=== PATIENT | male | born 1935 | race Caucasian/White ===

== ENCOUNTER 2021-01-23 14:24 | Inpatient (IN) | payer OTHER, MEDICARE ==
[2021-01-23 14:52] LABS: #Eosinphils 0.1 thou/uL (0.0-0.7); #Lymphocytes 0.9 thou/uL (1.20-3.40); %Basophils 0.2 % (0.0-1.0); %Eosinophils 0.7 % (0.0-10.0); %Lymphocytes 8.4 % (21.0-51.0); %Monocytes 9.2 % (0.0-10.0); %Neutrophils 81.5 % (42.0-75.0); Hemoglobin 13.9 g/dL (14.0-18.0); Mean Corpuscular HGB CONC 33.5 g/dL (32.0-36.0); Mean Corpuscular Hemoglobin 33.4 pg (27.0-31.0); Mean Corpuscular Volume 99.6 fL (78.0-98.0); Mean Platelet Volume 7.8 fL (7.4-10.4); Platelet Count 280 thou/uL (130-400); RBC Distribution Width 12.4 % (11.5-14.5); Red Blood Cell (RBC) Count 4.17 mill/uL (4.70-6.10)
[2021-01-23] MEDS ORDERED: Fentanyl 100 MCG/2 ML VIAL ONE ×2 (14:54→15:54)
[2021-01-23] MEDS ORDERED: Ketorolac Tromethamine 30 MG/ML VIAL ONE (14:54)
[2021-01-23 15:21] LABS: ALT (SGPT) 15 U/L (8-55); AST (SGOT) 25 U/L (5-34); Albumin 3.8 g/dL (3.4-4.8); Alkaline Phosphatase 55 U/L (40-110); Anion Gap 14 mmol/L (10-20); BUN (Urea Nitrogen) 21 mg/dL (8.4-25.7); Bilirubin, Total 0.4 mg/dL (0.2-1.2); Calc. Creatinine Clearance 0 mL/min (70-130); Carbon Dioxide 23 mmol/L (23-31); Chloride 105 mmol/L (98-107); Globulin 3.3 g/dL (2.4-3.5); Glucose 119 mg/dL (83-110); Potassium 4.5 mmol/L (3.5-5.1); Protein, Total 7.1 g/dL (5.8-8.1); Sodium 137 mmol/L (136-145)
[2021-01-23] MEDS ORDERED: Dextrose 50% Abboject 50 ML SYRINGE SLOW IVP PRN (16:59)
[2021-01-23] MEDS ORDERED: hydrALAZINE 20 MG/ML VIAL SLOW IVP PRN (16:59)
[2021-01-23] MEDS ORDERED: Ondansetron ODT 4 MG TAB PO PRN (16:59)
[2021-01-23] MEDS ORDERED: Dextrose 5% in Water 1,000 ML IV PRN (16:59)
[2021-01-23] MEDS ORDERED: Ondansetron PF 4 MG/2 ML Vial IVP PRN (16:59)
[2021-01-23] MEDS ORDERED: Sodium Chloride 0.9% 1,000 ML IV SCH (17:00)
[2021-01-23] MEDS ORDERED: Cyclobenzaprine 10 MG TAB ONE ×2 (17:00)
[2021-01-23] MEDS ORDERED: Acetaminophen/Codeine 30-300mg Tablet PO PRN (17:05)
[2021-01-23 17:26] LABS: Bilirubin Negative (Negative); Blood, Urine 3+ (Negative); Clarity Turbid (Clear); Glucose, Urine (Dipstick) Normal (Negative); Ketone, Urine Negative (Negative); Leukocyte 75 Leu/uL (Negative); Nitrite Negative (Negative); Protein, Urine (Dipstick) 70 mg/dL (Neg-Trace); RBC/HPF Greater than 50 HPF (0-3); Specific Gravity, Urine 1.018 (1.002-1.036); Squamous Epithelial 0-3 HPF (0-3); Urobilinogen Normal mg/dL (Less than 2); pH, Urine 5.5 (5.0-9.0)
[2021-01-23 17:28] LABS: Bacteria/HPF 1+ HPF (None Seen)
[2021-01-23 17:42] LABS: Magnesium 2.1 mg/dL (1.6-2.6)
[2021-01-23 17:48] LABS: SARS-CoV-2 NAA Rapid Test Not Detected (NotDetected)
[2021-01-23] MEDS ORDERED: Acetaminophen/Codeine 30-300mg Tablet ONE ×3 (19:04→22:43)
[2021-01-23] MEDS: Acetaminophen/Codeine 30-300mg Tablet PO SCH (19:05)
[2021-01-23] MEDS: Famotidine 20 MG TAB PO SCH (21:43)
[2021-01-23] MEDS ORDERED: Famotidine 20 MG TAB ONE (22:42)
[2021-01-24] MEDS ORDERED: Acetaminophen/Codeine 30-300mg Tablet ONE ×2 (01:06→06:34)
[2021-01-24] MEDS: Acetaminophen/Codeine 30-300mg Tablet PO SCH ×4 (01:13→20:11)
[2021-01-24 05:53] LABS: #Basophils 0.1 thou/uL (0.0-0.2); #Eosinphils 0.3 thou/uL (0.0-0.7); #Monocytes 1.2 thou/uL (0.11-0.59); #Neutrophils 5.9 thou/uL (1.40-6.50); %Basophils 0.6 % (0.0-1.0); %Lymphocytes 12.3 % (21.0-51.0); %Neutrophils 70.1 % (42.0-75.0); Hemoglobin 12.7 g/dL (14.0-18.0); Mean Corpuscular HGB CONC 33.8 g/dL (32.0-36.0); Mean Corpuscular Hemoglobin 33.6 pg (27.0-31.0); Mean Corpuscular Volume 99.2 fL (78.0-98.0); Mean Platelet Volume 7.5 fL (7.4-10.4); Platelet Count 225 thou/uL (130-400); RBC Distribution Width 12.3 % (11.5-14.5); Red Blood Cell (RBC) Count 3.78 mill/uL (4.70-6.10); White Blood Cell (WBC) Count 8.4 thou/uL (4.8-10.8)
[2021-01-24 06:18] LABS: Anion Gap 11 mmol/L (10-20); BUN (Urea Nitrogen) 27 mg/dL (8.4-25.7); Calc. Creatinine Clearance 0 mL/min (70-130); Calcium 8.6 mg/dL (7.8-10.44); Carbon Dioxide 23 mmol/L (23-31); Chloride 108 mmol/L (98-107); Glucose 101 mg/dL (83-110); Sodium 138 mmol/L (136-145)
[2021-01-24] MEDS ORDERED: Famotidine/PF 20 mg/2ml Vial ONE (06:33)
[2021-01-24] MEDS ORDERED: Famotidine 20 MG TAB ONE ×2 (06:34→09:08)
[2021-01-24] MEDS: Famotidine 20 MG TAB PO SCH ×2 (06:39→09:24)
[2021-01-24] MEDS ORDERED: Fentanyl 100 MCG/2 ML VIAL SLOW IVP PRN (10:01)
[2021-01-24] MEDS ORDERED: Acetaminophen 325 MG TAB PO SCH (10:15)
[2021-01-24 15:18] VITALS: BMI 33.2
[2021-01-24] MEDS: Acetaminophen 325 MG TAB PO PRN (15:39)
[2021-01-24] MEDS: Sulfameth/Trimethoprim DS 800-160mg TAB PO SCH (20:11)
[2021-01-25] MEDS: Acetaminophen/Codeine 30-300mg Tablet PO SCH ×4 (02:11→21:17)
[2021-01-25 06:41] LABS: Hemoglobin 12.4 g/dL (14.0-18.0); Mean Corpuscular HGB CONC 33.8 g/dL (32.0-36.0); Mean Corpuscular Hemoglobin 33.4 pg (27.0-31.0); Mean Corpuscular Volume 98.8 fL (78.0-98.0); Mean Platelet Volume 8.5 fL (7.4-10.4); Platelet Count 187 thou/uL (130-400); RBC Distribution Width 12.5 % (11.5-14.5); Red Blood Cell (RBC) Count 3.72 mill/uL (4.70-6.10); White Blood Cell (WBC) Count 8.3 thou/uL (4.8-10.8)
[2021-01-25 07:01] LABS: Anion Gap 10 mmol/L (10-20); BUN (Urea Nitrogen) 24 mg/dL (8.4-25.7); Calc. Creatinine Clearance 58 mL/min (70-130); Calcium 8.6 mg/dL (7.8-10.44); Carbon Dioxide 24 mmol/L (23-31); Chloride 106 mmol/L (98-107); Glucose 93 mg/dL (83-110); Phosphorus 3.3 mg/dL (2.3-4.7); Potassium 4.1 mmol/L (3.5-5.1); Sodium 136 mmol/L (136-145)
[2021-01-25] MEDS: Sulfameth/Trimethoprim DS 800-160mg TAB PO SCH (08:51)
[2021-01-25] MEDS: Famotidine 20 MG TAB PO SCH (08:51)
[2021-01-25] MEDS: Acetaminophen 325 MG TAB PO PRN (08:58)
[2021-01-25 09:04] LABS: Band 4 % (5-11); Eosinophils 3 % (0-10); Lymphocytes 16 % (21-51); MDiff Complete? YES; Monocytes 18 % (0-10); Neutrophil 58 % (42-75); RBC Morphology Normal; Reactive Lymphocytes 1 % (0-10)
[2021-01-26] MEDS ORDERED: Sodium Chloride 0.9% 1,000 ML IV SCH (01:00)
[2021-01-26] MEDS: Acetaminophen/Codeine 30-300mg Tablet PO SCH ×4 (01:08→20:15)
[2021-01-26] MEDS: Acetaminophen 325 MG TAB PO PRN ×2 (05:24→17:43)
[2021-01-26] MEDS ORDERED: CEFAZOLIN 2 GM, Admixture Fee 1 EACH in Sodium Chloride 0.9% 100 ML IVPB SCH (06:00)
[2021-01-26] MEDS: Famotidine 20 MG TAB PO SCH (08:18)
[2021-01-26] MEDS ORDERED: ceFAZolin 2 GM/DEX 5% 100 ML BAG ONE (08:47)
[2021-01-26] MEDS ORDERED: Dexamethasone 4 mg/ml Vial ONE (10:00)
[2021-01-26] MEDS ORDERED: Fentanyl 100 MCG/2 ML VIAL ONE ×3 (10:00→13:51)
[2021-01-26] MEDS ORDERED: Lidocaine 1% PF 5 ML VIAL ONE (11:47)
[2021-01-26] MEDS ORDERED: Ondansetron PF 4 MG/2 ML Vial ONE (11:47)
[2021-01-26] MEDS ORDERED: Rocuronium Bromide 10 MG/ML (10ML VIAL) ONE (11:47)
[2021-01-26] MEDS ORDERED: PROPOFOL 200 MG/20 ML VIAL ONE (11:47)
[2021-01-26] MEDS ORDERED: Dexamethasone 20 MG/5 ML VIAL ONE ×2 (11:47)
[2021-01-26] MEDS ORDERED: Glycopyrrolate 0.2 MG/ML 5 ML SYRINGE ONE (11:47)
[2021-01-26] MEDS ORDERED: Bupivacaine HCl 0.5%/Epinephrine 1:200,000/PF 30 ml Vial ONE (11:47)
[2021-01-26] MEDS ORDERED: Phenylephrine 10 MG/ML VIAL ONE (11:47)
[2021-01-26] MEDS ORDERED: ePHEDrine 50 MG/ML VIAL ONE (11:47)
[2021-01-26] MEDS ORDERED: Promethazine HCl 25 MG/ML VIAL IM PRN (13:41)
[2021-01-26] MEDS ORDERED: Promethazine HCl 25 MG/ML VIAL IVPB PRN (13:41)
[2021-01-26] MEDS ORDERED: Ondansetron HCl/PF 4 MG/2 ML Vial IVP PRN (13:41)
[2021-01-26] MEDS: ceFAZolin Sodium/D5W 2 GM in Premix Bag 1 BAG IVPB SCH (20:16)
[2021-01-27] MEDS: Acetaminophen/Codeine 30-300mg Tablet PO SCH ×4 (02:57→20:10)
[2021-01-27] MEDS: ceFAZolin Sodium/D5W 2 GM in Premix Bag 1 BAG IVPB SCH ×2 (02:59→12:27)
[2021-01-27 05:58] LABS: #Lymphocytes 0.7 thou/uL (1.20-3.40); #Neutrophils 8.3 thou/uL (1.40-6.50); %Basophils 0.1 % (0.0-1.0); %Eosinophils 0.1 % (0.0-10.0); %Lymphocytes 7.3 % (21.0-51.0); %Monocytes 9.6 % (0.0-10.0); %Neutrophils 82.9 % (42.0-75.0); Hemoglobin 10.9 g/dL (14.0-18.0); Mean Corpuscular Hemoglobin 33.2 pg (27.0-31.0); Mean Corpuscular Volume 97.7 fL (78.0-98.0); Mean Platelet Volume 7.8 fL (7.4-10.4); Platelet Count 216 thou/uL (130-400); RBC Distribution Width 12.1 % (11.5-14.5); Red Blood Cell (RBC) Count 3.28 mill/uL (4.70-6.10)
[2021-01-27 06:56] LABS: Anion Gap 12 mmol/L (10-20); BUN (Urea Nitrogen) 22 mg/dL (8.4-25.7); Calc. Creatinine Clearance 68 mL/min (70-130); Calcium 8.3 mg/dL (7.8-10.44); Carbon Dioxide 22 mmol/L (23-31); Chloride 105 mmol/L (98-107); Glucose 131 mg/dL (83-110); Magnesium 1.9 mg/dL (1.6-2.6); Phosphorus 3.4 mg/dL (2.3-4.7); Potassium 4.3 mmol/L (3.5-5.1); Sodium 135 mmol/L (136-145)
[2021-01-27] MEDS: Famotidine 20 MG TAB PO SCH (08:42)
[2021-01-27] MEDS ORDERED: Magnesium 2 GM/50 ML 2 GM in Premix Bag 1 BAG IVPB SCH (09:00)
[2021-01-27] MEDS: Atorvastatin Calcium 20 MG TAB PO SCH (20:10)
[2021-01-28] MEDS: Acetaminophen/Codeine 30-300mg Tablet PO SCH ×4 (03:02→20:17)
[2021-01-28 05:46] LABS: Hemoglobin 10.5 g/dL (14.0-18.0); Mean Corpuscular HGB CONC 33.4 g/dL (32.0-36.0); Mean Corpuscular Hemoglobin 33.2 pg (27.0-31.0); Mean Corpuscular Volume 99.5 fL (78.0-98.0); Mean Platelet Volume 7.9 fL (7.4-10.4); Platelet Count 203 thou/uL (130-400); RBC Distribution Width 12.2 % (11.5-14.5); Red Blood Cell (RBC) Count 3.15 mill/uL (4.70-6.10); White Blood Cell (WBC) Count 7.7 thou/uL (4.8-10.8)
[2021-01-28 05:59] LABS: Anion Gap 10 mmol/L (10-20); BUN (Urea Nitrogen) 26 mg/dL (8.4-25.7); Calc. Creatinine Clearance 84 mL/min (70-130); Carbon Dioxide 25 mmol/L (23-31); Chloride 102 mmol/L (98-107); Glucose 92 mg/dL (83-110); Magnesium 2.1 mg/dL (1.6-2.6); Phosphorus 3.1 mg/dL (2.3-4.7); Potassium 4.1 mmol/L (3.5-5.1); Sodium 133 mmol/L (136-145)
[2021-01-28 06:17] LABS: Band 6 % (5-11); Lymphocytes 12 % (21-51); MDiff Complete? YES; Monocytes 9 % (0-10); Neutrophil 73 % (42-75)
[2021-01-28] MEDS: Famotidine 20 MG TAB PO SCH (08:45)
[2021-01-28] MEDS: Furosemide 80 MG TAB PO SCH (08:45)
[2021-01-28] MEDS: Multivit, Therapeutic 1 TAB PO SCH (08:45)
[2021-01-28] MEDS: Potassium Chloride 10 MEQ TAB PO SCH (08:45)
[2021-01-28] MEDS ORDERED: Senokot S 8.6-50 MG TAB PO SCH (11:00)
[2021-01-28] MEDS ORDERED: Polyethylene Glycol 3350 17 GM Packet PO SCH (11:00)
[2021-01-28] MEDS: Senokot S 8.6-50 MG TAB PO SCH (20:18)
[2021-01-28] MEDS: Atorvastatin Calcium 20 MG TAB PO SCH (20:18)
[2021-01-29] MEDS: Acetaminophen/Codeine 30-300mg Tablet PO SCH ×4 (02:18→20:48)
[2021-01-29 05:42] LABS: Hemoglobin 10.8 g/dL (14.0-18.0); Mean Corpuscular HGB CONC 32.9 g/dL (32.0-36.0); Mean Corpuscular Hemoglobin 32.5 pg (27.0-31.0); Mean Corpuscular Volume 98.6 fL (78.0-98.0); Mean Platelet Volume 7.8 fL (7.4-10.4); Platelet Count 212 thou/uL (130-400); RBC Distribution Width 12.1 % (11.5-14.5); Red Blood Cell (RBC) Count 3.33 mill/uL (4.70-6.10); White Blood Cell (WBC) Count 7.6 thou/uL (4.8-10.8)
[2021-01-29 06:01] LABS: Anion Gap 13 mmol/L (10-20); BUN (Urea Nitrogen) 31 mg/dL (8.4-25.7); Calc. Creatinine Clearance 74 mL/min (70-130); Calcium 8.2 mg/dL (7.8-10.44); Carbon Dioxide 27 mmol/L (23-31); Chloride 101 mmol/L (98-107); Glucose 98 mg/dL (83-110); Magnesium 1.8 mg/dL (1.6-2.6); Phosphorus 3.6 mg/dL (2.3-4.7); Potassium 3.6 mmol/L (3.5-5.1); Sodium 137 mmol/L (136-145)
[2021-01-29 06:39] LABS: Band 12 % (5-11); Lymphocytes 18 % (21-51); MDiff Complete? YES; Monocytes 8 % (0-10); Neutrophil 62 % (42-75)
[2021-01-29] MEDS ORDERED: Magnesium 2 GM/50 ML 2 GM in Premix Bag 1 BAG IVPB SCH (08:00)
[2021-01-29] MEDS ORDERED: Magnesium Sulfate 2 GM in Sodium Chloride 0.9% 100 ML IVPB SCH (09:00)
[2021-01-29] MEDS ORDERED: Potassium Chloride 40 MEQ in Premix Bag 1 BAG IVPB SCH (09:00)
[2021-01-29] MEDS: Multivit, Therapeutic 1 TAB PO SCH (09:01)
[2021-01-29] MEDS: Furosemide 80 MG TAB PO SCH (09:01)
[2021-01-29] MEDS: Potassium Chloride 10 MEQ TAB PO SCH (09:01)
[2021-01-29] MEDS: Senokot S 8.6-50 MG TAB PO SCH ×2 (09:01→20:48)
[2021-01-29] MEDS: Famotidine 20 MG TAB PO SCH (09:02)
[2021-01-29] MEDS: Polyethylene Glycol 3350 17 GM Packet PO SCH (09:06)
[2021-01-29] MEDS ORDERED: Bisacodyl 10 MG SUPP PR SCH (11:15)
[2021-01-29] MEDS: Atorvastatin Calcium 20 MG TAB PO SCH (20:48)
[2021-01-30] MEDS: Acetaminophen/Codeine 30-300mg Tablet PO SCH ×3 (02:50→14:26)
[2021-01-30] MEDS: Multivit, Therapeutic 1 TAB PO SCH (08:55)
[2021-01-30] MEDS: Potassium Chloride 10 MEQ TAB PO SCH (08:55)
[2021-01-30] MEDS: Furosemide 80 MG TAB PO SCH (08:55)
[2021-01-30] MEDS: Polyethylene Glycol 3350 17 GM Packet PO SCH (08:56)
[2021-01-30] MEDS: Senokot S 8.6-50 MG TAB PO SCH (08:56)
[2021-01-30] MEDS ORDERED: Bisacodyl 10 MG SUPP PR PRN (11:03)
[2021-01-30 11:48] VITALS: BP 132/60; TEMP 98.4
== END 2021-01-30 15:03 | DRG 521 ==
LOC: ERS 14:24 → ERHOLD 16:59 → SURG A 01-24 14:26
PROVIDERS: ADMIT Emergency Medicine; ATTEND Emergency Medicine
PROC: 0SRR0J9 Replacement of Right Hip Joint, Femoral Surface with Synthetic Substitute, Cemented, Open Approach (ICD-10-PCS; principal; 2021-01-26)
DX: S72.001A Fracture of unspecified part of neck of right femur, initial encounter for closed fracture (principal); I62.03 Nontraumatic chronic subdural hemorrhage; N17.9 Acute kidney failure, unspecified; N39.0 Urinary tract infection, site not specified; M19.90 Unspecified osteoarthritis, unspecified site; W19.XXXA Unspecified fall, initial encounter; I25.10 Atherosclerotic heart disease of native coronary artery without angina pectoris; N18.9 Chronic kidney disease, unspecified; Z20.822 Contact with and (suspected) exposure to COVID-19; I25.2 Old myocardial infarction; Z95.1 Presence of aortocoronary bypass graft; Z88.8 Allergy status to other drugs, medicaments and biological substances; Z87.891 Personal history of nicotine dependence; Y92.000 Kitchen of unspecified non-institutional (private) residence as the place of occurrence of the external cause
CPT/HCPCS: 36415; 70450; 71045; 72170; 80048; 80053; 81003; 81015; 83735; 84100; 84145; 85025; 87040; 87086; 96374; 96376; C1713; C1776; G0390; J1100; J1885; J1956; J2370; J2405; J2704; J3010; J3475; J3480; J3490; J7050; S0028; U0002

== ENCOUNTER 2022-01-31 11:45 | Outpatient (CLI) | payer OTHER | END 2022-01-31 11:46 | disposition home or self-care (01) | LOC: CT 11:45 | PROVIDERS: ATTEND Nurse Practitioner Family | DX: I62.03 Nontraumatic chronic subdural hemorrhage (principal); G96.08 Other cranial cerebrospinal fluid leak | CPT/HCPCS: 70450 ==

== ENCOUNTER 2022-02-26 18:03 | Emergency (ER) | payer OTHER, MEDICARE ==
[2022-02-26 20:02] LABS: Bilirubin Negative (Negative); Blood, Urine 1+ (Negative); Clarity Extra Turbid (Clear); Glucose, Urine (Dipstick) Normal (Negative); Ketone, Urine Negative (Negative); Leukocyte 500 Leu/uL (Negative); Nitrite 2+ (Negative); Protein, Urine (Dipstick) 10 mg/dL (Neg-Trace); Specific Gravity, Urine 1.012 (1.002-1.036); Squamous Epithelial None Seen HPF (0-3); Triple Phosphate Crystal 4+ HPF (None Seen); Urobilinogen Normal mg/dL (Less than 2); WBC/HPF 21-50 HPF (0-3); pH, Urine 8.5 (5.0-9.0)
[2022-02-26 20:04] LABS: Bacteria/HPF 1+ HPF (None Seen); Unclassified Crystals 4+ HPF (None Seen)
[2022-02-26 20:50] LABS: #Eosinphils 0.2 thou/uL (0.0-0.7); #Lymphocytes 2.5 thou/uL (1.20-3.40); #Monocytes 1.2 thou/uL (0.11-0.59); %Basophils 0.1 % (0.0-1.0); %Eosinophils 1.4 % (0.0-10.0); %Lymphocytes 21.1 % (21.0-51.0); %Monocytes 9.9 % (0.0-10.0); %Neutrophils 67.5 % (42.0-75.0); Mean Corpuscular Hemoglobin 31.7 pg (27.0-31.0); Mean Platelet Volume 8.5 fL (7.4-10.4); Platelet Count 276 10x3/uL (130-400); RBC Distribution Width 12.1 % (11.5-14.5); Red Blood Cell (RBC) Count 4.09 mill/uL (4.70-6.10); White Blood Cell (WBC) Count 11.8 10x3/uL (4.8-10.8)
[2022-02-26 21:11] LABS: ALT (SGPT) 7 U/L (8-55); AST (SGOT) 17 U/L (5-34); Albumin 3.7 g/dL (3.4-4.8); Alkaline Phosphatase 52 U/L (40-110); Anion Gap 15 mmol/L (10-20); BUN (Urea Nitrogen) 36 mg/dL (8.4-25.7); Bilirubin, Total 0.3 mg/dL (0.2-1.2); Calc. Creatinine Clearance 0 mL/min (70-130); Calcium 8.7 mg/dL (7.8-10.44); Carbon Dioxide 25 mmol/L (23-31); Chloride 105 mmol/L (98-107); Estimated GFR 44; Globulin 3.1 g/dL (2.4-3.5); Glucose 98 mg/dL (83-110); Potassium 3.8 mmol/L (3.5-5.1); Protein, Total 6.8 g/dL (5.8-8.1); Sodium 141 mmol/L (136-145)
[2022-02-26] MEDS ORDERED: cefTRIAXone\\ROCEPHIN 2 GM VIAL ONE (21:42)
== END 2022-02-26 23:18 | disposition home or self-care (01) ==
LOC: ERS 18:03
DX: T83.098A Other mechanical complication of other urinary catheter, initial encounter (principal); N39.0 Urinary tract infection, site not specified; R33.9 Retention of urine, unspecified; I25.2 Old myocardial infarction
CPT/HCPCS: 36415; 51702; 51798; 80053; 81003; 81015; 85025; 87077; 87086; 87186; 96374; J0696